=== PATIENT | female | born 1940 | race Caucasian/White ===

== ENCOUNTER 2017-10-18 16:42 | Observation (INO) ==
[2017-10-18] MEDS ORDERED: IPRATROPIUM/ALBUTEROL 3 ML AMPUL.NEB NEB ONE ×2 (16:51→16:53)
[2017-10-18] MEDS ORDERED: 0.9 % SODIUM CHLORIDE 1,000 ML IV ONE (17:10)
[2017-10-18] MEDS ORDERED: methylPREDNISolone SOD SUCC 125 MG/2 ML VIAL IV ONE (17:10)
[2017-10-18] MEDS ORDERED: ALBUTEROL SULFATE 2.5 MG/3 ML NEBULIZER NEB ONE (17:10)
[2017-10-18] MEDS ORDERED: AZITHROMYCIN 500 MG in DEXTROSE 5% IN WATER 250 ML IV ONE (17:31)
--- NOTE | 2017-10-18 17:49 | Emergency Department Note ---
SOB HPI - General Chief Complaint: Shortness of Breath/Dyspnea Stated Complaint: SOB Time Seen by Provider: 10/18/17 17:02 Source: patient Mode of arrival: ambulatory Limitations: no limitations - History of Present Illness 76-year-old female who is been wheezing since this morning. She has a history of asthma/COPD. She does take nebulized treatments at home. She notes she has a fever at home. Not on home oxygen - Related Data Home Medications Medication Instructions Recorded Confirmed ALPRAZolam [Alprazolam] 1 tab PO PRN PRN 06/07/15 10/18/17 Albuterol Sulfate [Proair Hfa] 1 puff INH PRN PRN 06/07/15 10/18/17 HYDROcodone/ACETAMINOPHEN 1 - 2 tab PO Q4HP PRN 06/07/15 10/18/17 [Hydrocodon-Acetaminophn 10-325] Losartan Potassium [Losartan 50 mg PO DAILY 06/07/15 10/18/17 Potassium] Tiotropium [place] [Spiriva] 1 puff INH DAILY 06/07/15 06/07/15 amLODIPine BESYLATE [Amlodipine 1 tab PO DAILY 06/07/15 10/18/17 Besylate] Escitalopram Oxalate 20 mg PO PRN PRN 10/18/17 10/18/17 Previous Rx's Medication Instructions Recorded Methocarbamol [Robaxin] 750 - 1,500 mg PO QIDP PRN #40 05/18/15 tablet Albuterol Sulfate 0.63 mg IH Q4-6HP PRN #20 vial.neb 10/03/15 Allergies Allergy/AdvReac Type Severity Reaction Status Date / Time penicillin V Allergy Severe Throat Verified 09/12/17 15:01 Swells morphine Allergy Intermediate GI Verified 09/12/17 15:01 Upset/HIVES gabapentin [GABAPENTIN] Allergy Mild RASH/ITCHIN Verified 09/12/17 15:01 G ciprofloxacin [From CIPRO] Allergy Unknown . Verified 09/12/17 15:01 Sulfa (Sulfonamide AdvReac Unknown Vomiting Verified 09/12/17 15:01 Antibiotics) [SULFA(SULFONAMIDE ANTIBIOTICS)] Review of Systems All systems ED: reviewed and negative except as stated. Past Medical History - Past Medical History Attestation: Yes: The following information was validated with the patient. Medical history: Reports: asthma, COPD, hypertension, other (bilateral pedal neuropathy) Psychiatric history: Reports: no psych history Surgical history ED: Reports: other (Cyst on her back) - Social History smoking status: Former smoker Alcohol use: Reports: Rarely Drug use: Reports: none Physical Exam Some acute respiratory distress is noted- despite getting DuoNeb treatment on admission to the ER she is still working pretty hard to breathe with coarse rhonchi and wheezes throughout all lung gaytan. Normocephalic atraumatic. Conjunctive are clear sclerae nonicteric. No nasal discharge or congestion. Oropharynx is pink and moist. Neck is supple without lymphadenopathy thyromegaly or carotid bruit. Heart is regular rhythm but tachycardic. Unable to hear murmur secondary to loud lung sounds. Abdomen soft nontender nondistended. Normoactive bowel sounds. No pedal edema. +2 radial pulse. Alert oriented able to answer questions appropriately. Limitations: no limitations Course Vital Signs Temperature 98.9 F 10/18/17 16:43 Pulse Rate 111 H 10/18/17 16:43 Respiratory Rate 22 10/18/17 16:43 Blood Pressure 151/69 10/18/17 16:43 Pulse Oximetry (%) 90 10/18/17 16:43 Temperature 98.2 F 10/19/17 07:20 Pulse Rate 83 10/19/17 07:23 Respiratory Rate 16 10/19/17 07:23 Blood Pressure 107/61 10/19/17 07:20 Pulse Oximetry (%) 98 10/19/17 08:00 Shortness of Breath/Dyspnea - Lab Data Lab results reviewed: Yes I reviewed the patient's lab results. Result diagrams: 10/18/17 17:41 10/18/17 17:41 Lab Results 10/18/17 10/18/17 10/18/17 Range/Units 17:41 17:41 17:41 WBC 11.5 H (4.5-11.0) K/mcL RBC 4.56 (4.00-5.20) M/mcL Hgb 12.1 (12.0-15.0) g/dL Hct 36.7 (36.0-48.0) % POC Hct 36.0 (36.0-48.0) % MCV 80.6 (80.0-100.0) fL MCH 26.5 (26.0-34.0) pg MCHC 32.9 (31.0-36.0) g/dL RDW 14.4 (11.5-14.5) % Plt Count 285 (140-440) K/mcL MPV 8.4 (7.4-10.4) fL Gran % 78.9 H (38.0-78.0) % Lymph % (Auto) 9.9 L (15.5-49.0) % Wheeler % (Auto) 8.9 (1.0-12.0) % Eos % (Auto) 2.1 (0.0-7.0) % Baso % (Auto) 0.2 (0.0-2.0) % Gran # 9.1 H (1.8-8.0) K/mcL Lymph # (Auto) 1.1 L (1.5-4.8) K/mcL Wheeler # (Auto) 1.0 H (0.1-0.9) K/mcL Eos # (Auto) 0.2 (0.0-0.7) K/mcL Baso # (Auto) 0 (0.0-0.3) K/mcL VBG Lactic Acid 0.6 (0.5-2.2) mmol/L POC Sodium 138 (133-145) mmol/L Sodium 137 (133-145) mmol/L POC Potassium 4.0 (3.3-5.1) mmol/L Potassium 4.2 (3.3-5.1) mmol/L POC Chloride 102 (96-108) mmol/L Chloride 98 (96-108) mmol/L Carbon Dioxide 24 (22-30) mmol/L POC Total CO2 25 (22-30) mmol/L Anion Gap 15.0 (8-16) POC BUN 30 H (8-23) mg/dl BUN 28 H (8-23) mg/dl Creatinine 1.3 H (0.6-1.1) mg/dl POC Creatinine 1.3 H (0.6-1.1) mg/dl GFR Calculation 40 Glucose 117 H (70-105) mg/dL POC Glucose 121 H (70-105) mg/dL Calcium 9.1 (8.6-10.4) mg/dl POC WB Ioniz Calcium 1.15 L (1.16-1.32) mmol/L Total Bilirubin 0.7 (0.0-1.0) mg/dL AST 20 (0-37) U/l ALT 11 (0-40) U/l Alkaline Phosphatase 71 (39-117) U/L Total Protein 7.0 (5.9-8.4) gm/dL Albumin 4.1 (3.2-5.2) gm/dL Globulin 2.9 (2.2-3.7) gm/dL Albumin/Globulin Ratio 1.4 (1.0-2.3) ABG shows pH of 7.52 PCO2 35 PO2 56-respiratory alkalosis from tachypnea with hypoxia - Radiology Data Radiology results reviewed: Yes I reviewed the patient's radiology results. Chest x-ray shows no acute infiltrate but flattening of the diaphragms and expanded lungs consistent with COPD/asthma exacerbation. Disposition Pt seen by CASINO MANAGER/PA only: No Clinical Impression: Acute exacerbation of chronic obstructive airways disease, Hypoxia Summary: Patient has acute exacerbation of COPD/asthma with hypoxia. Start Solu-Medrol. Requiring oxygen now Discussed case with Dr. Hernandez, hospitalist who agreed to accept the patient for further care Disposition: Xfer As Inpt ([facility]) Condition: Serious
[2017-10-18 18:19] LABS: Basophils # (Auto) 0 K/mcL (0.0-0.3); Basophils % (Auto) 0.2 % (0.0-2.0); Eosinophils # (Auto) 0.2 K/mcL (0.0-0.7); Eosinophils % (Auto) 2.1 % (0.0-7.0); Granulocytes % (Auto) 78.9 % (38.0-78.0); Lymphocytes # (Auto) 1.1 K/mcL (1.5-4.8); Lymphocytes % (Auto) 9.9 % (15.5-49.0); Mean Cell Volume 80.6 fL (80.0-100.0); Mean Corpuscular HGB Conc 32.9 g/dL (31.0-36.0); Mean Corpuscular Hemoglobin 26.5 pg (26.0-34.0); Monocytes % (Auto) 8.9 % (1.0-12.0); Platelet Count 285 K/mcL (140-440); RBC 4.56 M/mcL (4.00-5.20); Red Cell Distribution Width 14.4 % (11.5-14.5)
[2017-10-18 18:39] LABS: ALT/SGPT 11 U/l (0-40); Albumin 4.1 gm/dL (3.2-5.2); Albumin/Globulin Ratio 1.4 (1.0-2.3); Alkaline Phosphatase 71 U/L (39-117); Blood Urea Nitrogen 28 mg/dl (8-23)
[2017-10-18] MEDS ORDERED: AZITHROMYCIN 250 MG TABLET PO ONE (18:59)
[2017-10-18] MEDS ORDERED: SUMAtriptan SUCCINATE 6 MG/0.5 ML VIAL SQ ONE (20:01)
[2017-10-18] MEDS ORDERED: ONDANSETRON 4 MG/2 ML VIAL IV PRN (20:01)
[2017-10-18] MEDS ORDERED: ACETAMINOPHEN 325 MG TABLET PO PRN (20:01)
--- NOTE | 2017-10-18 20:14 | Internal Med History&Physical ---
Medical - H&P: HPI Patient information: Note initiated : 10/18/17 at 8:07 pm Service Date, if different from initiated Date: [] Patient: Lisa Ross a 76 y/o F admitted on 10/18/17 for Shortness of breath. Chief Complaint: [] History of present illness: Ms. Ross is a 76 year old Female with h/o asthma/copd presents to the ER with complaints of 2 day history of shortness of breath and cough She notes she was her usual self 2 days ago, when her symptoms started. She has been having worsening shortness of breath with activity and rest, she notes she also has been wheezing and cough, she has chest pain associated with the cough. She admits to being nauseas but no vomiting she admits to having a headache, has h/o migraine headache and feels one is coming on She does not use oxygen at home In the ER she was noted to be afebrile, vitals stable, but mildly hypoxic intermittently. She was > 902% on 2 L by on my exam was doing 90-94% on room air ABG done in the ER showed hypoxia with po2 of 56% cxr clear ekg nsr lab reviewed, the patient was wheezing in the ER, received steroids, dunoebs and zithromax with some relief, but stil not stable enough to go home. She was therefore admitted to the hospital for further management. Review of systems: CONSTITUTIONAL: No weight loss, fever, chills, weakness or fatigue. HEENT: Eyes: No visual loss, blurred vision, double vision or yellow sclerae. Ears, Nose, Throat: No hearing loss, sneezing, congestion, runny nose or sore throat. SKIN: No rash or itching. CARDIOVASCULAR: chest pain with cough present, no palpitations or syncope RESPIRATORY: sob with rest and activity, cough present, clear sputum GASTROINTESTINAL: present nausea, No vomiting or diarrhea or constipation. No abdominal pain or blood in stools No [place]. GENITOURINARY: Denies Burning on urination. Blood in urine, or foul smelling urine NEUROLOGICAL: present headache and diziness no syncope, paralysis, tremors, numbness or tingling in the extremities. No change in bowel or bladder control. MUSCULOSKELETAL: pain everywhere as per her, its chr HEMATOLOGIC: No bleeding or bruising. No enlarged nodes PSYCHIATRIC: stable anxiety and depression. ENDOCRINOLOGIC: No reports of sweating, cold or heat intolerance. No polyuria or polydipsia. ALLERGIES: No hives, eczema or rhinitis. Skin: No rash, no jaundice, cyanosis or pallor. 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 denies etoh Medical - H&P: Meds Home Medications Medication Instructions Recorded Confirmed Type Methocarbamol [Robaxin] 750 - 1,500 mg PO QIDP PRN #40 05/18/15 09/12/17 Rx tablet ALPRAZolam [Alprazolam] 1 tab PO PRN PRN 06/07/15 09/12/17 History Albuterol Sulfate [Proair Hfa] 1 puff INH PRN PRN 06/07/15 09/12/17 History HYDROcodone/ACETAMINOPHEN 1 - 2 tab PO Q4HP PRN 06/07/15 09/12/17 History [Hydrocodon-Acetaminophn 10-325] Losartan Potassium [Losartan 50 mg PO DAILY 06/07/15 09/12/17 History Potassium] Tiotropium [place] [Spiriva] 1 puff INH DAILY 06/07/15 06/07/15 History amLODIPine BESYLATE [Amlodipine 1 tab PO DAILY 06/07/15 09/12/17 History Besylate] Albuterol Sulfate 0.63 mg IH Q4-6HP PRN #20 vial.neb 10/03/15 09/12/17 Rx predniSONE [Pred[facility]one] [facility] [place] 10/24/16 Rx guaiFENesin [Mucinex] 600 mg PO BID #30 tab 09/15/17 Rx predniSONE [Deltasone] 20 mg PO DAILY #10 tab 09/15/17 Rx Allergies Allergy/AdvReac Type Severity Reaction Status Date / Time penicillin V Allergy Severe Throat Verified 09/12/17 15:01 Swells morphine Allergy Intermediate GI Verified 09/12/17 15:01 Upset/HIVES gabapentin [GABAPENTIN] Allergy Mild RASH/ITCHIN Verified 09/12/17 15:01 G ciprofloxacin [From CIPRO] Allergy Unknown . Verified 09/12/17 15:01 Sulfa (Sulfonamide AdvReac Unknown Vomiting Verified 09/12/17 15:01 Antibiotics) [SULFA(SULFONAMIDE ANTIBIOTICS)] Medical - H&P: Exam - Constitutional Vitals: Temp Pulse Resp BP Pulse Ox 98.9 F 104 H 21 149/64 90 10/18/17 19:49 10/18/17 19:49 10/18/17 19:49 10/18/17 19:49 10/18/17 19:49 Exam: Constitutional; Afebrile, cooperative, alert, not in distress. Eyes- No icterus, , No periorbital swelling Ears- Ext ear normal, hearing normal to conversation. Neck- Midline trachea, supple Respiratory system: air entry equal on both sides, olman prlonged exp phase, olman wheeze, speaking full sentences, no accessory muscle use. CVS- Rate rhythm regular, S1,S2 heard, no gallop, no rub. Abdomen- Soft nontender abdomen, no organomegaly, no tenderness, no guarding or rigidity, NURSING TECHN- AOOx3, moving all extremities, no gross focal deficit noted. Medical - H&P: Reslt - Labs CBC & Chem 7: 10/18/17 17:41 10/18/17 17:41 Labs: Short CBC 10/18/17 Range/Units 17:41 WBC 11.5 H (4.5-11.0) K/mcL Hgb 12.1 (12.0-15.0) g/dL Hct 36.7 (36.0-48.0) % Plt Count 285 (140-440) K/mcL BMP 10/18/17 17:41 Sodium 137 Potassium 4.2 Chloride 98 Carbon Dioxide 24 BUN 28 H Creatinine 1.3 H Glucose 117 H Calcium 9.1 Liver Function 10/18/17 Range/Units 17:41 Total Bilirubin 0.7 (0.0-1.0) mg/dL AST 20 (0-37) U/l ALT 11 (0-40) U/l Alkaline Phosphatase 71 (39-117) U/L Albumin 4.1 (3.2-5.2) gm/dL Medical - H&P: A/P - Narrative A/P Narrative: A/P Acute copd/ asthma exacerbation hypoxia HTN Migraine headache Anxiety/ Depression Plan Admit to med surg as obs IV solumedrol given in ER Start on po prednisone daily duonebs q4hrs zithromax resume home meds when verified sumatriptan sq for migraine DVT hep sq Diet regular Full code
[2017-10-18] MEDS: 0.9 % SODIUM CHLORIDE 10 ML SYRINGE IV SCH (21:39)
[2017-10-18] MEDS: HEPARIN 5,000 UNIT/ML VIAL SQ SCH (21:39)
[2017-10-18] MEDS: FAMOTIDINE 20 MG TABLET PO SCH (21:39)
[2017-10-18] MEDS: HYDROcodone/APAP 5/325MG TABLET PO PRN (22:53)
[2017-10-18] MEDS: IPRATROPIUM/ALBUTEROL 3 ML AMPUL.NEB NEB SCH (22:53)
[2017-10-19] MEDS: IPRATROPIUM/ALBUTEROL 3 ML AMPUL.NEB NEB SCH ×6 (02:21→22:56)
[2017-10-19] MEDS: HYDROcodone/APAP 5/325MG TABLET PO PRN ×4 (02:59→18:41)
[2017-10-19] MEDS: 0.9 % SODIUM CHLORIDE 10 ML SYRINGE IV SCH ×3 (05:26→20:41)
[2017-10-19] MEDS: HEPARIN 5,000 UNIT/ML VIAL SQ SCH ×2 (08:17→20:41)
[2017-10-19] MEDS: AZITHROMYCIN 250 MG TABLET PO SCH (08:17)
[2017-10-19] MEDS: predniSONE 20 MG TABLET PO SCH (08:17)
[2017-10-19] MEDS: FAMOTIDINE 20 MG TABLET PO SCH ×2 (08:17→20:41)
--- NOTE | 2017-10-19 09:16 | XRay Report ---
HISTORY: Reason for Exam:dyspnea FINDINGS: The lungs are clear. The heart, mediastinum, penny and pleura are normal. The questionable nodule described on the prior chest x-ray from 09/15/17 is not identified on the current exam. IMPRESSION: Normal chest. Interpreted and Authenticated by: Kana Fernandes 10/19/17
--- NOTE | 2017-10-19 09:44 | Internal Med Progress Note ---
Medical - PN: Subj Patient information: Note initiated : 10/19/17 at 9:41 am Service Date, if different from initiated Date: [] Patient: Lisa Ross a 76 y/o F admitted on 10/18/17 for Shortness of breath. Chief Complaint: [] Interval history: Ms. Ross is a 76 year old Female with h/o asthma/copd presents to the ER with complaints of 2 day history of shortness of breath and cough She notes she was her usual self 2 days ago, when her symptoms started. She has been having worsening shortness of breath with activity and rest, she notes she also has been wheezing and cough, she has chest pain associated with the cough. She admits to being nauseas but no vomiting she admits to having a headache, has h/o migraine headache and feels one is coming on She does not use oxygen at home In the ER she was noted to be afebrile, vitals stable, but mildly hypoxic intermittently. She was > 902% on 2 L by on my exam was doing 90-94% on room air ABG done in the ER showed hypoxia with po2 of 56% cxr clear ekg nsr lab reviewed, the patient was wheezing in the ER, received steroids, dunoebs and zithromax with some relief, but stil not stable enough to go home. She was therefore admitted to the hospital for further management. 5/6 Patient seen and examined lying comfortably in bed feels better compared to yesterday but still has some cough and shortness of breath. Example shows wheezing. We were unable to get an IV access, given the patient does not have any intravenous medications for now will avoid trying to get another line. Continue steroids and duo nebs. Continue azithromycin. I expect discharge tomorrow Pertinent ROS: Denies headache, dizziness Denies chest pain, palpitations Cough and shortness of breath improving Denies abdominal pain, nausea or vomiting. - Constitutional Vitals: Vital Signs Temp Pulse Resp BP Pulse Ox 98.2 F 83 16 107/61 98 10/19/17 07:20 10/19/17 07:23 10/19/17 07:23 10/19/17 07:20 10/19/17 08:00 Period Temp Pulse Resp BP Sys/Donald Pulse Ox Last 24 Hr 97.6 F-98.9 F 83-111 16-30 107-151/56-78 90-98 Intake and Output 10/18/17 10/19/17 10/19/17 21:59 05:59 13:59 Intake Total 660 / 660 1120 / 1120 500 / 500 Output Total 50 / 50 Balance 660 / 660 1070 / 1070 500 / 500 Weight 134 lb Intake & Output: Intake & Output 10/18/17 10/19/17 10/19/17 21:59 05:59 13:59 Intake Total 660 / 660 1120 / 1120 500 / 500 Output Total 50 / 50 Balance 660 / 660 1070 / 1070 500 / 500 Weight 134 lb Intake: IV 300 / 300 Sodium Chloride 0.9% 1,000 ml @ 250 / 250 Wide Open IV .Q0M ONE Rx#: [id number] Zithromax 500 mg In Dextrose 5% 50 / 50 in Water 250 ml @ 250 mls/hr IV ONCE ONE Rx#:[id number] Oral 360 / 360 1120 / 1120 500 / 500 Output: Void Amount 50 / 50 Other: Meal 2x tacos toast Breakfast Percent of Meal Consumed 100% 100% 100% Feeding Ability Independent Independent Exam: Constitutional; Afebrile, cooperative, alert, not in distress. Eyes- No icterus, , No periorbital swelling Ears- Ext ear normal, hearing normal to conversation. Neck- Midline trachea, supple Respiratory system: Air entry improved since yesterday, still has bilateral wheeze and prolonged expiratory phase, but wheezing has improved. The patient is able to speak full sentences no accessory muscle use CVS- Rate rhythm regular, S1,S2 heard, no gallop, no rub. Abdomen- Soft nontender abdomen, no organomegaly, no tenderness, no guarding or rigidity, ROOM SERVICE BELLHOP- AOOx3, moving all extremities, no gross focal deficit noted. Medical - PN: Obj Da - Labs CBC & Chem 7: 10/18/17 17:41 10/18/17 17:41 Labs: Abnormal Lab Results 10/18/17 10/18/17 17:41 17:41 WBC 11.5 H Gran % 78.9 H Lymph % (Auto) 9.9 L Gran # 9.1 H Lymph # (Auto) 1.1 L [place] # (Auto) 1.0 H POC BUN 30 H BUN 28 H Creatinine 1.3 H POC Creatinine 1.3 H Glucose 117 H POC Glucose 121 H POC WB Ioniz Calcium 1.15 L Meds: Medications Acetaminophen (Tylenol) 650 mg PO Q6HP PRN PRN Reason: PAIN/FEVER > 101 Hydrocodone Bitart/Acetaminophen ([place] 5/325mg) 1 tab PO Q4HP PRN PRN Reason: PAIN LEVEL 3-6 Last Admin: 10/19/17 07:09 Dose: 1 tab Albuterol/Ipratropium (Duoneb) 3 ml NEB Q4HRT [facility] Last Admin: 10/19/17 07:22 Dose: 3 ml Azithromycin (Zithromax) 250 mg PO DAILY [facility] Stop: 10/22/17 09:01 Last Admin: 10/19/17 08:17 Dose: 250 mg Famotidine (Pepcid) 20 mg PO BID [facility] Last Admin: 10/19/17 08:17 Dose: 20 mg Heparin Sodium (Porcine) (Heparin) 5,000 unit SQ Q12 [facility] Last Admin: 10/19/17 08:17 Dose: 5,000 unit Ondansetron HCl (Zofran) 4 mg IV Q6HP PRN PRN Reason: Nausea And Vomiting Prednisone (Prednisone) 40 mg PO QAMCC [facility] Last Admin: 10/19/17 08:17 Dose: 40 mg Sodium Chloride (Saline Flush) 10 ml IV Q8 [facility] Last Admin: 10/19/17 05:26 Dose: Not Given Medical - PN: A/P - Time Spent With Patient Total time spent is greater than 50% in coordination of care (as documented) at patient's floor/unit and/or counseling patient: - Narrative A/P Narrative: A/P Acute copd/ asthma exacerbation hypoxia HTN Migraine headache Anxiety/ Depression Plan Continue present management, continue duo nebs, oral steroids, oral azithromycin. Patient did not complain of headache this morning. Continue home medications Patient does not require oxygen at this point in time. DVT hep sq Diet regular Full code Medical - PN: Qual - Stroke Symptom Onset Unknown: No - VTE Deep Vein Thrombosis/Pulmonary Embolism Present on Admission: No
[2017-10-20] MEDS: IPRATROPIUM/ALBUTEROL 3 ML AMPUL.NEB NEB SCH ×2 (03:22→07:16)
[2017-10-20] MEDS: HYDROcodone/APAP 5/325MG TABLET PO PRN (04:39)
[2017-10-20] MEDS: 0.9 % SODIUM CHLORIDE 10 ML SYRINGE IV SCH (05:53)
[2017-10-20] MEDS: predniSONE 20 MG TABLET PO SCH (07:34)
[2017-10-20] MEDS: AZITHROMYCIN 250 MG TABLET PO SCH (07:35)
[2017-10-20] MEDS: HEPARIN 5,000 UNIT/ML VIAL SQ SCH (07:35)
[2017-10-20] MEDS: FAMOTIDINE 20 MG TABLET PO SCH (07:35)
[2017-10-20 08:28] LABS: Blood Urea Nitrogen 46 mg/dl (8-23)
--- NOTE | 2017-10-20 08:28 | Discharge Summary ---
Medical - DS: Prov Patient information: Note initiated : 10/20/17 at 8:26 am Service Date, if different from initiated Date: [] Patient: Lisa Ross 76 y/o F admitted on 10/18/17 for Shortness of breath. Chief Complaint: [] Date of admission: 10/18/17 19:40 Discharge date: 10/20/17 Primary care physician: Saige Yap Admitting clinician: Raeann Hernandez Discharging clinician: Raeann Hernandez Medical - DS: Meds - Discharge Medications Prescriptions: Azithromycin [Zithromax] 250 mg PO DAILY #3 tab predniSONE [Prednisone] 40 mg PO QAMCC #6 tab Active and Home Medications: Home Medications Methocarbamol [Robaxin] 750 - 1,500 mg PO QIDP PRN #40 tablet 05/18/15 [Rx Confirmed 09/12/17 Last Taken Unknown] ALPRAZolam [Alprazolam] 1 tab PO PRN PRN 06/07/15 [History Confirmed 10/18/17 Last Taken 10/16/17 11:00] Albuterol Sulfate [Proair Hfa] 1 puff INH PRN PRN 06/07/15 [History Confirmed Last Taken 10/18/17 11:00] HYDROcodone/ACETAMINOPHEN [Hydrocodon-Acetaminophn 10-325] 1 - 2 tab PO Q4HP PRN 06/07/15 [History Confirmed 10/18/17 Last Taken 10/18/17 13:00] Losartan Potassium [Losartan Potassium] 50 mg PO DAILY 06/07/15 [History Confirmed 10/18/17 Last Taken 10/18/17 11:00] Tiotropium [place] [Spiriva] 1 puff INH DAILY 06/07/15 [History Confirmed Last Taken 10/18/17 11:00] amLODIPine BESYLATE [Amlodipine Besylate] 1 tab PO DAILY 06/07/15 [History Confirmed 10/18/17 Last Taken 10/18/17 09:00] Albuterol Sulfate 0.63 mg IH Q4-6HP PRN #20 vial.neb 10/03/15 [Rx Confirmed 10/31 Last Taken 10/18/17 11:00] Escitalopram Oxalate 20 mg PO PRN PRN 10/18/17 [History Confirmed 10/18/17 Last Taken 10/18/17 11:00] Medical - DS: Hosp Hospital course: Ms. Ross is a 76 year old Female with h/o asthma/copd presents to the ER with complaints of 2 day history of shortness of breath and cough, and wheezing. Not responding to her usual inhaler treatments. she used 4-6 times a day for 2 days before coming to the ER In the ER she was noted to be afebrile, vitals stable, but mildly hypoxic intermittently. She was > 902% on 2 L by on my exam was doing 90-94% on room air ABG done in the ER showed hypoxia with po2 of 56%, cxr clear, ekg nsr, lab reviewed, The patient was wheezing in the ER, received steroids, dunoebs and zithromax with some relief, but stil not stable enough to go home. She was therefore admitted to the hospital for further management. The patient was treated with oral prednisone, duo nebs and Zithromax. She responded to the treatment very well. In 2 days her wheezing had completely resolved, she was able to speak full sentences he was able to ambulate without any limitations. This morning she desired to be discharged early she has an appointment at 930 in [place]. I have advised her to take prednisone and azithromycin for 3 more days. She will continue with the nebulizer treatment as before. No changes in her chronic home medications have been done. Discharge diagnosis: COPD/ Asthma Exacerbation - Time Spent with Patient Total time spent providing and/or coordinating discharge services: Less than 30 minutes Medical - DS: Exam - Constitutional Vitals: Vital Signs Temp Pulse Pulse Resp BP BP Pulse Ox 10/20/17 07:42 22 10/20/17 07:32 93 H 17 10/20/17 06:22 97.6 F 18 131/69 90 10/20/17 03:20 98.3 F 76 16 132/71 91 10/19/17 23:34 98.0 F 85 22 132/67 92 10/19/17 22:56 87 18 10/19/17 20:00 97.8 F 93 H 24 H 139/69 92 10/19/17 19:33 88 20 10/19/17 16:00 94 10/19/17 15:52 97.1 F 20 125/72 93 10/19/17 15:28 92 H 16 10/19/17 12:00 98.3 F 16 128/67 98 Intake and Output 10/19/17 10/20/17 10/20/17 21:59 05:59 13:59 Intake Total 0 / 0 Output Total 350 / 350 300 / 300 200 / 200 Balance -350 / -350 -300 / -300 -200 / -200 Intake: Oral 0 / 0 Output: Void Amount 350 / 350 300 / 300 200 / 200 Other: Meal Nourishment/Supplement Percent of Meal Consumed 25% # Voids 2 2 Weight 156 lb 14.4 oz Additional comments: Constitutional; Afebrile, cooperative, alert, not in distress. Eyes- No icterus, , No periorbital swelling Ears- Ext ear normal, hearing normal to conversation. Neck- Midline trachea, supple Respiratory system: Air Entry equal on both sides, No crackles or wheezing, no rhonchi. CVS- Rate rhythm regular, S1,S2 heard, no gallop, no rub. Abdomen- Soft nontender abdomen, no organomegaly, no tenderness, no guarding or rigidity, [employer]- AOOx3, moving all extremities, no gross focal deficit noted. Medical - DS: Data Labs on day of discharge: Labs from last 24 hours 10/20/17 03:50 Sodium Pending Potassium Pending Chloride Pending Carbon Dioxide Pending Anion Gap Pending BUN Pending Creatinine Pending GFR Calculation Pending Glucose Pending Calcium Pending Medical - DS: A/P - Patient/Caregiver Discharge Instructions Activity: increase activity as tolerated Diet: Regular Diet Additional Instructions: Take antibiotic azithromycin for 3 days Take prendisone 2 tabs (40mg total) for another 3 days, take this medication with food, and or milk go to the ER if worsening symptoms, shortness of breath, chest pain or fever Prescriptions: Azithromycin [Zithromax] 250 mg PO DAILY #3 tab predniSONE [Prednisone] 40 mg PO [facility] #6 tab - Follow up Plan Follow up with: Saige Yap ARNP [Primary Care Provider] - Disposition: Home, Self-Care Prognosis: Fair Rehab Potential: Fair I certify that the patient requires SNF services: No Overall status at discharge: patient is back to baseline Medical - DS: Qual - VTE Deep Vein Thrombosis/Pulmonary Embolism Present on Admission: No
== END 2017-10-20 09:05 | disposition home or self-care (01) ==
LOC: ED 16:42 → MEDSUR 16:42
PROVIDERS: ADMIT Internal Medicine; ATTEND Internal Medicine

== ENCOUNTER 2019-06-17 17:29 | Inpatient (IN) ==
[2019-06-17] MEDS ORDERED: IPRATROPIUM/ALBUTEROL 3 ML AMPUL.NEB NEB ONE ×3 (17:34→19:17)
[2019-06-17 18:33] LABS: Basophils # (Auto) 0.11 K/mcL (0.00-0.30); Eosinophils # (Auto) 0.24 K/mcL (0.00-0.70); Eosinophils % (Auto) 2.2 % (0.0-7.0); Granulocytes % (Auto) 72.1 % (38.0-78.0); Hemoglobin 10.5 g/dL (11.2-15.7); Lymphocytes # (Auto) 1.84 K/mcL (1.50-4.80); Lymphocytes % (Auto) 16.7 % (15.5-49.0); Mean Cell Volume 86.3 fL (80.0-100.0); Mean Corpuscular HGB Conc 30.9 g/dL (31.0-36.0); Mean Platelet Volume 9.5 fL (7.4-10.4); Monocytes # (Auto) 0.88 K/mcL (0.10-0.90); Platelet Count 388 K/mcL (140-440); RBC 3.94 M/mcL (3.59-5.38); Red Cell Distribution Width 13.8 % (11.5-14.5)
[2019-06-17 18:59] LABS: Creatine Kinase MB 3.5 ng/ml (0-2.9); proBNP 761.1 pg/ml (0-450)
[2019-06-17] MEDS ORDERED: methylPREDNISolone SOD SUCC 125 MG/2 ML VIAL IV ONE (18:59)
--- NOTE | 2019-06-17 18:59 | Emergency Department Note ---
Chest Pain HPI - General Chief Complaint: Chest Pain Stated Complaint: blood pressure problem Time Seen by Provider: 06/17/19 18:44 Source: patient Mode of arrival: wheelchair Limitations: no limitations - History of Present Illness HPI Narrative: History of cough and shortness of breath for the last week. EMS, she's very wheezy, she does have a history of reactive airways, asthma for the last several years. Quit smoking about 30 years ago. Daughter states she's been coughing and bringing up a lot of mucus and phlegm Duration: intermittent - Related Data Home Medications Medication Instructions Recorded Confirmed ALPRAZolam [Alprazolam] 1 tab PO PRN PRN 06/07/15 02/26/19 Albuterol Sulfate [Proair Hfa] 1 puff INH PRN PRN 06/07/15 02/26/19 HYDROcodone/ACETAMINOPHEN 1 - 2 tab PO Q4HP PRN 06/07/15 02/26/19 [Hydrocodon-Acetaminophn 10-325] Losartan Potassium 50 mg PO DAILY 06/07/15 02/26/19 Tiotropium [place] [Spiriva] 1 puff INH DAILY 06/07/15 02/26/19 amLODIPine BESYLATE [Amlodipine 1 tab PO DAILY 06/07/15 02/26/19 Besylate] Escitalopram Oxalate 20 mg PO PRN PRN 10/18/17 02/26/19 Previous Rx's Medication Instructions Recorded Methocarbamol [Robaxin] 750 - 1,500 mg PO QIDP PRN #40 05/18/15 tablet Albuterol Sulfate 0.63 mg IH Q4-6HP PRN #20 vial.neb 10/03/15 Ondansetron [Zofran ODT] 4 mg SL Q4-6HP PRN #10 tab 04/08/18 Allergies Allergy/AdvReac Type Severity Reaction Status Date / Time penicillin V Allergy Severe Throat Verified 06/17/19 17:33 Swells morphine Allergy Intermediate GI Verified 06/17/19 17:33 Upset/HIVES ciprofloxacin [From CIPRO] Allergy Mild Vomiting Verified 06/17/19 17:33 Sulfa (Sulfonamide AdvReac Mild Vomiting Verified 06/17/19 17:33 Antibiotics) [SULFA(SULFONAMIDE ANTIBIOTICS)] Review of Systems All systems ED: reviewed and negative except as stated. Chest Pain PMH - Past Medical History Attestation: Yes: The following information was validated with the patient. Medical history: Reports: asthma, COPD, hypertension, other (bilateral pedal neuropathy. SPENCER (but not treated 2017)). Denies: atrial fibrillation, cancer, CVA, hyperlipidemia, myocardial infarction, TIA Surgical history ED: Reports: non-contributory Psychiatric history: Reports: anxiety, depression - Social History smoking status: Former smoker Alcohol use: Reports: None (Denies any.) Drug use: Reports: none. Denies: marijuana Physical Exam Limitations: no limitations General appearance: alert Head: atraumatic, normocephalic Eye: Present: normal appearance, PERRL, EOMI ENT: Present: normal exam, normal oropharynx, mucous membranes moist, TM's normal bilaterally Neck: Present: normal inspection, full ROM Chest: Present: normal inspection, symmetric chest wall rise. Absent: tenderness Respiratory: Present: rales/crackles, wheezes, accessory muscle use, prolonged expiratory phase. Absent: respiratory distress, stridor Cardiovascular: Present: regular rate, normal rhythm, normal heart sounds Abdominal: Present: soft, normal bowel sounds. Absent: distention, tenderness, guarding Extremities: Present: normal inspection, full ROM, tenderness Back: Present: normal inspection, full ROM Neurological: Present: alert, oriented X3, CN II-XII intact Psychiatric: Present: normal affect Skin: Present: warm, dry, normal color Course Vital Signs Temperature 96.3 F L 06/17/19 17:29 Pulse Rate 73 06/17/19 17:29 Respiratory Rate 30 H 06/17/19 17:29 Blood Pressure 125/65 06/17/19 17:29 Pulse Oximetry (%) 97 06/17/19 17:29 Temperature 96.3 F L 06/17/19 17:29 Pulse Rate 82 06/17/19 20:46 Respiratory Rate 15 06/17/19 20:46 Blood Pressure 124/59 06/17/19 20:46 Pulse Oximetry (%) 91 06/17/19 20:46 Chest Pain - MDM Narrative Medical decision making narrative: Discussed hospital admission versus observation with Dr. Tinsley, at this point, he is ordered a few more tests are, we attempted to get her off the oxygen, but every time we DC'd the oxygen her O2 sat would fall to 88. %. - Lab Data Lab results reviewed: Yes I reviewed the patient's lab results. Result diagrams: 06/17/19 18:00 06/17/19 17:59 Lab Results 06/17/19 06/17/19 06/17/19 Range/Units 17:59 17:59 18:00 WBC 11.0 (4.50-11.00) K/mcL RBC 3.94 (3.59-5.38) M/mcL Hgb 10.5 L (11.2-15.7) g/dL Hct 34.0 L (34.1-44.9) % MCV 86.3 (80.0-100.0) fL MCH 26.6 (26.0-34.0) pg MCHC 30.9 L (31.0-36.0) g/dL RDW 13.8 (11.5-14.5) % Plt Count 388 (140-440) K/mcL MPV 9.5 (7.4-10.4) fL Gran % 72.1 (38.0-78.0) % Lymph % (Auto) 16.7 (15.5-49.0) % [place] % (Auto) 8.0 (1.0-12.0) % Eos % (Auto) 2.2 (0.0-7.0) % Baso % (Auto) 1.0 (0.0-2.0) % Gran # 7.96 (1.80-8.00) K/mcL Lymph # (Auto) 1.84 (1.50-4.80) K/mcL [place] # (Auto) 0.88 (0.10-0.90) K/mcL Eos # (Auto) 0.24 (0.00-0.70) K/mcL Baso # (Auto) 0.11 (0.00-0.30) K/mcL Sodium 138 (133-145) mmol/L Potassium 3.8 (3.3-5.1) mmol/L Chloride 101 (96-108) mmol/L Carbon Dioxide 19 L (22-30) mmol/L Anion Gap 18.0 H (8-16) BUN 27 H (8-23) mg/dl Creatinine 1.7 H (0.6-1.1) mg/dl GFR Calculation 29 Glucose 163 H (70-105) mg/dL Calcium 9.2 (8.6-10.4) mg/dl Total Bilirubin 0.2 (0.0-1.0) mg/dL AST 25 (0-37) U/l ALT 19 (0-40) U/l Alkaline Phosphatase 78 (39-117) U/L Total Creatine Kinase 138 (24-170) IU/L CK-MB (CK-2) 3.5 H (0-2.9) ng/ml Myoglobin 287 H (25-58) ng/ml Troponin T (0-0.03) ng/ml NT-Pro-B Natriuret Pep 761.1 H (0-450) pg/ml Total Protein 7.1 (5.9-8.4) gm/dL Albumin 4.0 (3.2-5.2) gm/dL Globulin 3.1 (2.2-3.7) gm/dL Albumin/Globulin Ratio 1.3 (1.0-2.3) 06/17/19 Range/Units 18:00 WBC (4.50-11.00) K/mcL RBC (3.59-5.38) M/mcL Hgb (11.2-15.7) g/dL Hct (34.1-44.9) % MCV (80.0-100.0) fL MCH (26.0-34.0) pg MCHC (31.0-36.0) g/dL RDW (11.5-14.5) % Plt Count (140-440) K/mcL MPV (7.4-10.4) fL Gran % (38.0-78.0) % Lymph % (Auto) (15.5-49.0) % [place] % (Auto) (1.0-12.0) % Eos % (Auto) (0.0-7.0) % Baso % (Auto) (0.0-2.0) % Gran # (1.80-8.00) K/mcL Lymph # (Auto) (1.50-4.80) K/mcL [place] # (Auto) (0.10-0.90) K/mcL Eos # (Auto) (0.00-0.70) K/mcL Baso # (Auto) (0.00-0.30) K/mcL Sodium (133-145) mmol/L Potassium (3.3-5.1) mmol/L Chloride (96-108) mmol/L Carbon Dioxide (22-30) mmol/L Anion Gap (8-16) BUN (8-23) mg/dl Creatinine (0.6-1.1) mg/dl GFR Calculation Glucose (70-105) mg/dL Calcium (8.6-10.4) mg/dl Total Bilirubin (0.0-1.0) mg/dL AST (0-37) U/l ALT (0-40) U/l Alkaline Phosphatase (39-117) U/L Total Creatine Kinase (24-170) IU/L CK-MB (CK-2) (0-2.9) ng/ml Myoglobin (25-58) ng/ml Troponin T < 0.01 (0-0.03) ng/ml NT-Pro-B Natriuret Pep (0-450) pg/ml Total Protein (5.9-8.4) gm/dL Albumin (3.2-5.2) gm/dL Globulin (2.2-3.7) gm/dL Albumin/Globulin Ratio (1.0-2.3) - Radiology Data Radiology results reviewed: Yes I reviewed the patient's radiology results. Disposition Pt seen by [facility]/PA only: No Clinical Impression: Atypical chest pain, Reactive airway disease, Asthma with acute exacerbation Disposition: Xfer As Outpt/Obs ([facility]) Referrals: Saige Yap ARNP [Primary Care Provider] -
[2019-06-17] MEDS ORDERED: MONTELUKAST 10 MG TABLET PO ONE (19:01)
[2019-06-17 19:02] LABS: ALT/SGPT 19 U/l (0-40); AST/SGOT 25 U/l (0-37); Albumin/Globulin Ratio 1.3 (1.0-2.3); Alkaline Phosphatase 78 U/L (39-117); Bilirubin,Total 0.2 mg/dL (0.0-1.0); Blood Urea Nitrogen 27 mg/dl (8-23); Calcium 9.2 mg/dl (8.6-10.4); Carbon Dioxide 19 mmol/L (22-30); Chloride 101 mmol/L (96-108); Globulin 3.1 gm/dL (2.2-3.7); Glomerular Filtration Rate 29; Glucose 163 mg/dL (70-105)
[2019-06-17] MEDS ORDERED: FAMOTIDINE 20 MG TABLET PO ONE (19:02)
[2019-06-17] MEDS ORDERED: diphenhydrAMINE 50 MG/ML VIAL IV ONE (19:02)
[2019-06-17] MEDS ORDERED: HYDROmorphone 2 MG/ML VIAL IV PRN (21:19)
--- NOTE | 2019-06-17 21:46 | Internal Med History&Physical ---
Medical - H&P: [facility] Patient information: Note initiated : 06/17/19 at 9:43 pm Service Date, if different from initiated Date: [] Patient: Lisa Ross a 78 y/o F admitted on for blood pressure problem. Chief Complaint: [] History of present illness: Ms. Ross is a 78 year old F With a history of asthma and COPD presents the ED with shortness of breath. Patient collapsed in the shower today and is able to bring on the wall to the other apartment and those individuals called EMS. Patient states she has had increased cough and shortness of breath for 4 days above chronic cough. She is felt very wheezy. She has a lot of sinus drainage. Has some chest pain aggravated by coughing. In the ED she was given steroids and nebulizers with some improvement however on room air she still desat to the 80s. And still very wheezy. Chest x-ray unremarkable. Review of Systems: Pertinent positives as above. Chronic headaches, constipation. Denies fever/chills/nausea/vomiting/abdominal pain/diarrhea. Remaining 10 point review of system reviewed negative Medical - H&P: PMH Medical history: Medical History (Last Updated 05/09/18 @ 06:00 by Horace Horn DO) Asthma attack (Acute) Asthma (Acute) Chest pain, non-cardiac (Resolved) Contusion of rib on right side (Resolved) Sprain of thoracic region (Resolved) Past surgical history: Left hip arthroplasty Cholecystectomy Family history: Mother COPD Father had lung disease from asbestosis exposure Social History Patient quit smoking 30 years ago Denies alcohol use Ambulates with a cane Lives at a [facility] apartments Medical - H&P: Meds Home Medications Medication Instructions Recorded Confirmed Type Methocarbamol [Robaxin] 750 - 1,500 mg PO QIDP PRN #40 05/18/15 02/26/19 Rx tablet ALPRAZolam [Alprazolam] 1 tab PO PRN PRN 06/07/15 02/26/19 History Albuterol Sulfate [Proair Hfa] 1 puff INH PRN PRN 06/07/15 02/26/19 History HYDROcodone/ACETAMINOPHEN 1 - 2 tab PO Q4HP PRN 06/07/15 02/26/19 History [Hydrocodon-Acetaminophn 10-325] Losartan Potassium 50 mg PO DAILY 06/07/15 02/26/19 History Tiotropium [place] [Spiriva] 1 puff INH DAILY 06/07/15 02/26/19 History amLODIPine BESYLATE [Amlodipine 1 tab PO DAILY 06/07/15 02/26/19 History Besylate] Albuterol Sulfate 0.63 mg IH Q4-6HP PRN #20 vial.neb 10/03/15 02/26/19 Rx Escitalopram Oxalate 20 mg PO PRN PRN 10/18/17 02/26/19 History Ondansetron [Zofran ODT] 4 mg SL Q4-6HP PRN #10 tab 04/08/18 02/26/19 Rx Allergies Allergy/AdvReac Type Severity Reaction Status Date / Time penicillin V Allergy Severe Throat Verified 06/17/19 17:33 Swells morphine Allergy Intermediate GI Verified 06/17/19 17:33 Upset/HIVES ciprofloxacin [From CIPRO] Allergy Mild Vomiting Verified 06/17/19 17:33 Sulfa (Sulfonamide AdvReac Mild Vomiting Verified 06/17/19 17:33 Antibiotics) [SULFA(SULFONAMIDE ANTIBIOTICS)] Medical - H&P: Exam - Constitutional Vitals: Temp Pulse Resp BP Pulse Ox 96.3 F L 89 20 126/68 95 06/17/19 17:29 06/17/19 21:31 06/17/19 21:31 06/17/19 21:31 06/17/19 21:31 Exam: General: Alert, Awake, No acute Distress Eyes/N/T: EOMI, PERRL Head/Neck: neck supple, normocephalic atraumatic CV: RRR, No murmurs, normal s1/s2 Pulm: Wheezing b/l, mild rhonchi b/l Abd: soft, nontender, +BS x4 Ext: no clubbing/cyanosis/edema Neuro: Alert, no focal deficits, moves all extremities, CN 2-12 grossly intact, symmetrical strength b/l upper/lower, sensations intact b/l upper/lower Skin: warm/dry Medical - H&P: Reslt - Labs CBC & Chem 7: 06/17/19 18:00 06/17/19 17:59 Labs: Short CBC 06/17/19 Range/Units 18:00 WBC 11.0 (4.50-11.00) K/mcL Hgb 10.5 L (11.2-15.7) g/dL Hct 34.0 L (34.1-44.9) % Plt Count 388 (140-440) K/mcL BMP 06/17/19 17:59 Sodium 138 Potassium 3.8 Chloride 101 Carbon Dioxide 19 L BUN 27 H Creatinine 1.7 H Glucose 163 H Calcium 9.2 Cardiac Enzymes 06/17/19 06/17/19 Range/Units 17:59 18:00 Total Creatine Kinase 138 (24-170) IU/L CK-MB (CK-2) 3.5 H (0-2.9) ng/ml Troponin T < 0.01 (0-0.03) ng/ml Liver Function 06/17/19 Range/Units 17:59 Total Bilirubin 0.2 (0.0-1.0) mg/dL AST 25 (0-37) U/l ALT 19 (0-40) U/l Alkaline Phosphatase 78 (39-117) U/L Albumin 4.0 (3.2-5.2) gm/dL Medical - H&P: A/P - Narrative A/P Narrative: A: *Acute chronic exacerbation of asthma/COPD (not on home O2): *Acute hypoxic respiratory failure: 2/2 above *JORDEN on CKD IIIb: *Anemia, chronic: *HTN: norvasc/losartan *Anxiety/depression: *Osteoarthritis: home prn [place] *h/o Migraines P: -Steroid(wean), nebs -IS/Acapella,RT -Respiratory viral panel -ABG -Monitor PEF -IVF's, f/u renal fxn -hold ARB for JORDEN -prn home benzo -SSI while on steroids -ppx: Lovenox full code
[2019-06-17] MEDS ORDERED: DEXTROSE 50% 50 ML VIAL IV PRN (23:21)
[2019-06-17] MEDS ORDERED: POLYETHYLENE GLYCOL 3350 17 GM PACKET PO PRN (23:21)
[2019-06-17] MEDS ORDERED: ACETAMINOPHEN 325 MG TABLET PO PRN (23:21)
[2019-06-17] MEDS ORDERED: POTASSIUM CHLORIDE 40 MEQ in DEXTROSE 5% IN WATER 500 ML IV PRN (23:21)
[2019-06-17] MEDS ORDERED: LACTULOSE 20 GM/30 ML ORAL.SOL PO PRN (23:21)
[2019-06-17] MEDS ORDERED: SENNOSIDES 1 TABLET PO PRN (23:21)
[2019-06-17] MEDS ORDERED: POTASSIUM CHLORIDE 20 MEQ TABLET PO PRN ×2 (23:21)
[2019-06-17] MEDS ORDERED: DEXTROSE 31 GM ORAL.SUSP PO PRN (23:21)
[2019-06-17] MEDS ORDERED: ONDANSETRON 4 MG/2 ML VIAL IV PRN (23:21)
[2019-06-17] MEDS ORDERED: IPRATROPIUM/ALBUTEROL 3 ML AMPUL.NEB NEB PRN (23:21)
[2019-06-17] MEDS ORDERED: MAGNESIUM SULFATE 2 GM/50 ML BAG IV PRN (23:21)
[2019-06-17] MEDS ORDERED: methylPREDNISolone SOD SUCC 125 MG/2 ML VIAL ONE (23:30)
[2019-06-17] MEDS: 0.9 % SODIUM CHLORIDE 1,000 ML IV SCH (23:44)
[2019-06-18] MEDS: 0.9 % SODIUM CHLORIDE 10 ML SYRINGE IV SCH ×4 (00:11→21:47)
[2019-06-18] MEDS: IPRATROPIUM/ALBUTEROL 3 ML AMPUL.NEB NEB SCH ×4 (00:20→18:45)
[2019-06-18] MEDS: methylPREDNISolone SOD SUCC 125 MG/2 ML VIAL IV SCH ×4 (00:49→21:46)
--- NOTE | 2019-06-18 03:52 | XRay Report ---
CLINICAL INFORMATION: Shortness of breath and chest pain COMPARISON: 02/26/2019 TECHNIQUE: PA and Lateral views FINDINGS: The heart size, mediastinum and pulmonary vessels are unremarkable. The lungs are clear. There are no effusions. The bones and soft tissues are within normal limits. IMPRESSION: Normal chest. Interpreted and Authenticated by: Ariel Isabel 06/18/19
[2019-06-18] MEDS ORDERED: ACETAMINOPHEN 325 MG TABLET PO ONE ×2 (04:43→06:43)
[2019-06-18] MEDS ORDERED: IPRATROPIUM/ALBUTEROL 3 ML AMPUL.NEB NEB ONE (06:19)
[2019-06-18] MEDS ORDERED: methylPREDNISolone SOD SUCC 125 MG/2 ML VIAL ONE (06:42)
[2019-06-18] MEDS ORDERED: LABETALOL 5 MG/ML ML IV PRN (07:07)
--- NOTE | 2019-06-18 07:08 | Internal Med Progress Note ---
Medical - PN: Subj Patient information: Note initiated : 06/18/19 at 7:04 am Service Date, if different from initiated Date: [] Patient: Lisa Ross a 78 y/o F admitted on 06/17/19 for blood pressure problem. Chief Complaint: [] Interval history: Ms. Ross is a 78 year old F With a history of asthma and COPD presents the ED with shortness of breath. Patient collapsed in the shower today and is able to bring on the wall to the other apartment and those individuals called EMS. Patient states she has had increased cough and shortness of breath for 4 days above chronic cough. She is felt very wheezy. She has a lot of sinus drainage. Has some chest pain aggravated by coughing. In the ED she was given steroids and nebulizers with some improvement however on room air she still desat to the 80s. And still very wheezy. Chest x-ray unremarkable. 06/18 He much better today. She feels her breathing is significantly improved. Per nurses she did desat a little bit while ambulating but recovered. She is cur rently on room air. She says she coughed up a bunch of junk this morning. Review of Systems: Chronic headaches, constipation. Denies fever/chills/nausea/vomiting/abdominal pain/diarrhea. Otherwise see above. - Constitutional Vitals: Vital Signs Temp Pulse Resp BP Pulse Ox 98.6 F 83 20 137/57 91 06/18/19 03:45 06/18/19 03:45 06/18/19 03:45 06/18/19 03:45 06/18/19 03:45 Period Temp Pulse Resp BP Sys/Donald Pulse Ox Last 24 Hr 96.3 F-98.6 F 73-89 13-37 86-138/49-92 91-100 Intake and Output 06/17/19 06/18/19 06/18/19 21:59 05:59 13:59 Weight 75.296 kg 74.162 kg Intake & Output: Intake & Output 06/17/19 06/18/19 06/18/19 21:59 05:59 13:59 Weight 75.296 kg 74.162 kg Other: Percent of Meal Consumed yogurt Feeding Ability Independent Exam: General: Alert, Awake, No acute Distress Eyes/N/T: EOMI, Head/Neck: neck supple, CV: RRR, No murmurs, Pulm: greatly improved today, mild wheezing, no rhonchi Abd: soft, nontender, +BS x4 Ext: no clubbing/cyanosis/edema Neuro: Alert, no focal deficits, moves all extremities, Skin: warm/dry Medical - PN: Obj Da - Labs CBC & Chem 7: 06/18/19 06:03 06/18/19 06:03 Labs: Abnormal Lab Results 06/17/19 06/17/19 06/17/19 18:00 17:59 17:59 Hgb 10.5 L Hct 34.0 L MCHC 30.9 L Carbon Dioxide 19 L Anion Gap 18.0 H BUN 27 H Creatinine 1.7 H Glucose 163 H CK-MB (CK-2) 3.5 H Myoglobin 287 H NT-Pro-B Natriuret Pep 761.1 H Meds: Medications Acetaminophen (Tylenol) 650 mg PO Q6HP PRN PRN Reason: PAIN/FEVER > 101 Last Admin: 06/18/19 06:51 Dose: 650 mg Documented by: Albuterol/Ipratropium (Duoneb) 3 ml NEB Q6HRT [facility] Last Admin: 06/18/19 00:20 Dose: 3 ml Documented by: Albuterol/Ipratropium (Duoneb) 3 ml NEB Q4HP PRN PRN Reason: Shortness Of Breath Dextrose (Dextrose 50%) 0 ml IV UD PRN PRN Reason: Hypoglycemia Diagnostic Test (Pha) (Accu-Chek) 1 each FS ACHS NITA Docusate Sodium (Colace) 100 mg PO BID NITA Enoxaparin Sodium (Lovenox) 40 mg SQ DAILY [facility] Glucose (Insta-Glucose) 15 gm PO PRN PRN PRN Reason: Hypoglycemia Potassium Chloride 40 meq/ (Dextrose) 520 mls @ 130 mls/hr IV UD PRN PRN Reason: Potassium < 3 Magnesium Sulfate (Magnesium Sulfate) 2 gm in 50 mls @ 50 mls/hr IV UD PRN PRN Reason: Magnesium </= 1.6 Sodium Chloride (Sodium Chloride 0.9%) 1,000 mls @ 125 mls/hr IV .Q8H NITA Stop: 06/18/19 15:20 Last Admin: 06/17/19 23:44 Dose: 125 mls/hr Documented by: Insulin Human Lispro (Humalog) 0 unit SQ ACHS NITA; Protocol Lactulose (Cephulac) 20 gm PO DAILYP PRN PRN Reason: Constipation Methylprednisolone Sodium Succinate (Solu-Medrol) 80 mg IV Q8 [facility] Last Admin: 06/18/19 06:50 Dose: 80 mg Documented by: Ondansetron HCl (Zofran) 4 mg IV Q4HP PRN PRN Reason: Nausea And Vomiting Polyethylene Glycol (Miralax) 17 gm PO DAILYP PRN PRN Reason: Constipation Potassium Chloride (Kdur) 40 meq PO UD PRN PRN Reason: Potssium is 3-3.5 Potassium Chloride (Kdur) 40 meq PO UD PRN PRN Reason: Potassium < 3 Senna (Senokot) 2 tab PO DAILYP PRN PRN Reason: Constipation Sodium Chloride (Saline Flush) 10 ml IV Q8 [facility] Last Admin: 06/18/19 05:16 Dose: Not Given Documented by: Medical - PN: A/P - Time Spent With Patient Total time spent is greater than 50% in coordination of care (as documented) at patient's floor/unit and/or counseling patient: - Narrative A/P Narrative: A: *Acute chronic exacerbation of asthma/COPD (not on home O2): 2/2 RSV *Acute hypoxic respiratory failure: 2/2 above -now on room air *JORDEN on CKD IIIb: improving *Anemia, chronic: *HTN: norvasc/losartan *Anxiety/depression: *Osteoarthritis: home prn [place] *h/o Migraines P: -Steroid(wean), nebs -IS/Acapella,RT -Monitor PEF -IVF's, f/u renal fxn -hold ARB for JORDEN -meds to be reconciled -prn home benzo -SSI while on steroids -ppx: Lovenox full code
[2019-06-18 07:33] LABS: Basophils # (Auto) 0.02 K/mcL (0.00-0.30); Basophils % (Auto) 0.3 % (0.0-2.0); Eosinophils # (Auto) 0 K/mcL (0.00-0.70); Eosinophils % (Auto) 0 % (0.0-7.0); Granulocytes % (Auto) 89.7 % (38.0-78.0); Hematocrit 30.1 % (34.1-44.9); Hemoglobin 9.4 g/dL (11.2-15.7); Lymphocytes # (Auto) 0.73 K/mcL (1.50-4.80); Lymphocytes % (Auto) 9.2 % (15.5-49.0); Mean Cell Volume 85.8 fL (80.0-100.0); Mean Corpuscular HGB Conc 31.2 g/dL (31.0-36.0); Mean Platelet Volume 9.6 fL (7.4-10.4); Monocytes # (Auto) 0.06 K/mcL (0.10-0.90); Monocytes % (Auto) 0.8 % (1.0-12.0); Platelet Count 338 K/mcL (140-440); RBC 3.51 M/mcL (3.59-5.38); Red Cell Distribution Width 14.1 % (11.5-14.5); WBC 7.9 K/mcL (4.50-11.00)
[2019-06-18] MEDS: 0.9 % SODIUM CHLORIDE 1,000 ML IV SCH (07:58)
[2019-06-18] MEDS: INSULIN LISPRO 1 UNIT/0.01 ML UNIT SQ SCH ×4 (07:59→21:59)
[2019-06-18 08:00] LABS: ALT/SGPT 16 U/l (0-40); AST/SGOT 24 U/l (0-37); Albumin 3.7 gm/dL (3.2-5.2); Albumin/Globulin Ratio 1.2 (1.0-2.3); Alkaline Phosphatase 70 U/L (39-117); Bilirubin,Direct < 0.2 mg/dL (0.0-0.3); Bilirubin,Total < 0.2 mg/dL (0.0-1.0); Blood Urea Nitrogen 29 mg/dl (8-23); Calcium 8.8 mg/dl (8.6-10.4); Carbon Dioxide 17 mmol/L (22-30); Chloride 99 mmol/L (96-108); Globulin 3.1 gm/dL (2.2-3.7); Glomerular Filtration Rate 33; Glucose 210 mg/dL (70-105); Lactate Dehydrogenase 212 U/L (94-250); Phosphorous 3.1 mg/dL (2.7-4.5); Triglycerides 89 mg/dl (<150); Uric Acid 8.1 mg/dL (2.5-8.0)
[2019-06-18] MEDS: DOCUSATE SODIUM 100 MG CAPSULE PO SCH ×2 (08:28→21:47)
[2019-06-18] MEDS: ENOXAPARIN 40 MG/0.4 ML SYRINGE SQ SCH (08:28)
[2019-06-18] MEDS: HYDROcodone/APAP 10/325MG TABLET PO PRN ×3 (12:30→21:47)
[2019-06-18] MEDS: SUMAtriptan SUCCINATE 50 MG TABLET PO PRN ×2 (13:06→21:48)
[2019-06-18] MEDS ORDERED: cloNIDine HCL 0.1 MG TABLET PO PRN (17:11)
[2019-06-18] MEDS ORDERED: hydrALAZINE 20 MG/ML VIAL IV PRN (17:12)
--- NOTE | 2019-06-18 17:24 | Discharge Summary ---
Medical - DS: Prov Patient information: Note initiated : 06/18/19 at 5:21 pm Service Date, if different from initiated Date: [] Patient: Lisa Ross 78 y/o F admitted on 06/17/19 for blood pressure problem. Chief Complaint: [] Date of admission: 06/17/19 23:10 Discharge date: 06/19/19 Primary care physician: Saige Yap Consults: 06/17/19 Consult to Physician [CONS] Stat Comment: Consulting Provider: Alexis Dimas Reason For Exam: Physician to Consult Medical - DS: Meds - Discharge Medications Prescriptions: Albuterol Sulfate 0.63 mg IH Q4-6HP PRN #30 vial.neb PRN Reason: Wheezing Transmission Status: Received by [id number] predniSONE [Prednisone] 10 mg PO [facility] #1 tab Prescription Printed Azithromycin [Zithromax] 500 mg PO DAILY #1 tab Transmission Status: Pending to [id number] Active and Home Medications: Home Medications Methocarbamol [Robaxin] 750 - 1,500 mg PO QIDP PRN #40 tablet 05/18/15 [Rx Confirmed 02/26/19 Last Taken Unknown] ALPRAZolam [Alprazolam] 1 tab PO PRN PRN 06/07/15 [History Confirmed 02/26/19 Last Taken 10/16/17 11:00] Albuterol Sulfate [Proair Hfa] 1 puff INH PRN PRN 06/07/15 [History Confirmed 02/26/19 Last Taken 10/18/17 11:00] HYDROcodone/ACETAMINOPHEN [Hydrocodon-Acetaminophn 10-325] 1 tab PO Q4HP PRN 06/07/15 [History Confirmed 06/18/19 Last Taken 10/18/17 13:00] Losartan Potassium 100 mg PO DAILY 06/07/15 [History Confirmed 06/18/19 Last Taken 10/18/17 11:00] Tiotropium [place] [Spiriva] 1 puff INH DAILY 06/07/15 [History Confirmed 02/26/19 Last Taken 10/18/17 11:00] amLODIPine BESYLATE [Amlodipine Besylate] 1 tab PO DAILY 06/07/15 [History Confirmed 02/26/19 Last Taken 10/18/17 09:00] Albuterol Sulfate 0.63 mg IH Q4-6HP PRN #20 vial.neb 10/03/15 [Rx Confirmed 02/26/19 Last Taken 10/18/17 11:00] Escitalopram Oxalate 20 mg PO PRN PRN 10/18/17 [History Confirmed 02/26/19 Last Taken 10/18/17 11:00] Ondansetron [Zofran ODT] 4 mg SL Q4-6HP PRN #10 tab 04/08/18 [Rx Confirmed 02/26/19 Last Taken Unknown] DULoxetine HCL [Drizalma Sprinkle] 60 mg PO DAILY 06/18/19 [History Confirmed 06/18/19 Last Taken Unknown] Rosuvastatin Calcium [Crestor] 5 mg PO DAILY 06/18/19 [History Confirmed 06/18/19 Last Taken Unknown] SUMAtriptan SUCCINATE [Imitrex] 50 mg PO Q8HP PRN 06/18/19 [History Confirmed 06/18/19 Last Taken Unknown] hydrOXYzine HCL 25 mg PO Q6HP PRN 06/18/19 [History Confirmed 06/18/19 Last Taken Unknown] lamoTRIgine [Lamotrigine ER] 50 mg PO DAILY 06/18/19 [History Confirmed 06/18/19 Last Taken Unknown] Medical - DS: Hosp Hospital Course: Ms. Ross is a 78 year old F With a history of asthma and COPD presents the ED with shortness of breath. Patient collapsed in the shower today and is able to bring on the wall to the other apartment and those individuals called EMS. Patient states she has had increased cough and shortness of breath for 4 days above chronic cough. She is felt very wheezy. She has a lot of sinus drainage. Has some chest pain aggravated by coughing. In the ED she was given steroids and nebulizers with some improvement however on room air she still desat to the 80s. And still very wheezy. Chest x-ray unremarkable. 06/18 He much better today. She feels her breathing is significantly improved. Per nurses she did desat a little bit while ambulating but recovered. She is currently on room air. She says she coughed up a bunch of junk this morning. 06/19 Still has cough but it is breaking up and she has been doing well on room air. A: *Acute chronic exacerbation of asthma/COPD (not on home O2): 2/2 RSV *Acute hypoxic respiratory failure: 2/2 above -now on room air *JORDEN on CKD IIIb: improving *Anemia, chronic: *HTN: ?norvasc/losartan *Anxiety/depression: ?prn home benzo *Osteoarthritis: home prn [place] *h/o Migraines difficulty clarifying home meds Discharge diagnosis: OPD exacerbation acute hypoxic respiratory failure acute kidney injury Secondary discharge diagnosis: Hypertension anxiety osteoarthritis migraine - Time Spent with Patient Total time spent providing and/or coordinating discharge services: Greater than 30 minutes Medical - DS: Exam - Constitutional Vitals: Vital Signs Temp Pulse Pulse Resp BP BP BP 06/18/19 15:44 98 F 20 142/68 06/18/19 14:00 06/18/19 11:15 86 20 06/18/19 11:00 98.3 F 24 H 141/74 06/18/19 07:16 06/18/19 07:00 98.3 F 24 H 146/70 06/18/19 06:35 89 15 06/18/19 03:45 98.6 F 83 20 137/57 06/17/19 23:46 28 H 06/17/19 23:23 75 22 119/60 06/17/19 23:21 98.2 F 89 20 126/52 06/17/19 23:01 78 19 125/62 06/17/19 22:46 83 23 H 107/68 06/17/19 22:32 78 16 100/49 06/17/19 22:24 77 13 06/17/19 22:16 75 14 119/60 06/17/19 22:03 75 15 06/17/19 22:01 77 16 127/66 06/17/19 21:31 89 20 126/68 06/17/19 21:16 77 15 114/58 06/17/19 21:01 80 19 120/56 06/17/19 20:46 82 15 124/59 06/17/19 20:33 85 21 121/77 06/17/19 20:16 87 21 109/69 06/17/19 20:01 82 30 H 134/61 06/17/19 19:48 82 19 130/88 06/17/19 19:31 80 24 H 103/92 06/17/19 19:16 81 29 H 118/72 06/17/19 19:08 80 22 121/74 06/17/19 19:02 81 37 H 86/55 06/17/19 19:00 82 06/17/19 18:46 78 27 H 129/67 06/17/19 18:36 81 19 127/64 06/17/19 18:31 78 22 127/64 06/17/19 18:16 78 19 120/64 06/17/19 18:01 78 20 115/63 06/17/19 17:46 81 30 H 127/66 06/17/19 17:40 79 22 138/85 06/17/19 17:29 96.3 F L 73 30 H 125/65 Pulse Ox 06/18/19 15:44 95 06/18/19 14:00 94 06/18/19 11:15 06/18/19 11:00 98 06/18/19 07:16 93 06/18/19 07:00 91 06/18/19 06:35 06/18/19 03:45 91 06/17/19 23:46 94 06/17/19 23:23 94 06/17/19 23:21 95 06/17/19 23:01 94 06/17/19 22:46 96 06/17/19 22:32 95 06/17/19 22:24 95 06/17/19 22:16 95 06/17/19 22:03 95 06/17/19 22:01 95 06/17/19 21:31 95 06/17/19 21:16 94 06/17/19 21:01 91 06/17/19 20:46 91 06/17/19 20:33 94 06/17/19 20:16 93 06/17/19 20:01 95 06/17/19 19:48 95 06/17/19 19:31 100 06/17/19 19:16 97 06/17/19 19:08 97 06/17/19 19:02 98 06/17/19 19:00 06/17/19 18:46 98 06/17/19 18:36 100 06/17/19 18:31 100 06/17/19 18:16 99 06/17/19 18:01 100 06/17/19 17:46 100 06/17/19 17:40 97 06/17/19 17:29 97 Intake and Output 01/09/0206/18/19 06/18/19 05:59 13:59 21:59 Intake Total 1240 300 Output Total 200 300 Balance 1040 0 Intake: IV 1000 Sodium Chloride 0.9% 1,000 ml @ 1000 125 mls/hr IV .Q8H [facility] Rx#: [id number] Oral 240 300 Output: Urine Catheter Amount 300 Void Amount 200 Other: Meal Lunch Percent of Meal Consumed yogurt 100% Feeding Ability Independent Independent Urine Appearance Clear Clear Urine Color Bright Yellow Bright Yellow # Voids 1 Weight 74.162 kg 74.162 kg Patient Weight 06/19/19 05:59 Weight 74.162 kg Medical - DS: Data Labs on day of discharge: Labs from last 24 hours 06/18/19 06/18/19 06/17/19 06:03 06:03 18:00 WBC 7.9 RBC 3.51 L Hgb 9.4 L Hct 30.1 L MCV 85.8 MCH 26.8 MCHC 31.2 RDW 14.1 Plt Count 338 MPV 9.6 Gran % 89.7 H Lymph % (Auto) 9.2 L [place] % (Auto) 0.8 L Eos % (Auto) 0 Baso % (Auto) 0.3 Gran # 7.13 Lymph # (Auto) 0.73 L [place] # (Auto) 0.06 L Eos # (Auto) 0 Baso # (Auto) 0.02 Sodium 133 Potassium 5.0 Chloride 99 Carbon Dioxide 17 L Anion Gap 17.0 H BUN 29 H Creatinine 1.5 H GFR Calculation 33 Glucose 210 H Uric Acid 8.1 H Calcium 8.8 Phosphorus 3.1 Magnesium 1.8 Total Bilirubin < 0.2 Direct Bilirubin < 0.2 GGT 19 AST 24 ALT 16 Alkaline Phosphatase 70 Lactate Dehydrogenase 212 Total Creatine Kinase CK-MB (CK-2) Myoglobin Troponin T < 0.01 NT-Pro-B Natriuret Pep Total Protein 6.8 Albumin 3.7 Globulin 3.1 Albumin/Globulin Ratio 1.2 Triglycerides 89 06/17/19 06/17/19 06/17/19 18:00 17:59 17:59 WBC 11.0 RBC 3.94 Hgb 10.5 L Hct 34.0 L MCV 86.3 MCH 26.6 MCHC 30.9 L RDW 13.8 Plt Count 388 MPV 9.5 Gran % 72.1 Lymph % (Auto) 16.7 [place] % (Auto) 8.0 Eos % (Auto) 2.2 Baso % (Auto) 1.0 Gran # 7.96 Lymph # (Auto) 1.84 [place] # (Auto) 0.88 Eos # (Auto) 0.24 Baso # (Auto) 0.11 Sodium 138 Potassium 3.8 Chloride 101 Carbon Dioxide 19 L Anion Gap 18.0 H BUN 27 H Creatinine 1.7 H GFR Calculation 29 Glucose 163 H Uric Acid Calcium 9.2 Phosphorus Magnesium Total Bilirubin 0.2 Direct Bilirubin GGT AST 25 ALT 19 Alkaline Phosphatase 78 Lactate Dehydrogenase Total Creatine Kinase 138 CK-MB (CK-2) 3.5 H Myoglobin 287 H Troponin T NT-Pro-B Natriuret Pep 761.1 H Total Protein 7.1 Albumin 4.0 Globulin 3.1 Albumin/Globulin Ratio 1.3 Triglycerides Medical - DS: A/P - Patient/Caregiver Discharge Instructions Activity: increase activity as tolerated Diet: Regular Diet Prescriptions: Albuterol Sulfate 0.63 mg IH Q4-6HP PRN #30 vial.neb PRN Reason: Wheezing Transmission Status: Received by [id number] predniSONE [Prednisone] 10 mg PO [facility] #1 tab Prescription Printed - Follow up Plan Follow up with: Saige Yap ARNP [Primary Care Provider] - Disposition: Home, Self-Care Prognosis: Fair Rehab Potential: Fair Overall status at discharge: patient is progressing back to baseline
[2019-06-18] MEDS: AZITHROMYCIN 500 MG in DEXTROSE 5% IN WATER 250 ML IV SCH (19:29)
[2019-06-19] MEDS: IPRATROPIUM/ALBUTEROL 3 ML AMPUL.NEB NEB SCH ×3 (00:08→13:06)
[2019-06-19] MEDS: HYDROcodone/APAP 10/325MG TABLET PO PRN ×2 (05:40→09:31)
[2019-06-19] MEDS: 0.9 % SODIUM CHLORIDE 10 ML SYRINGE IV SCH (05:41)
[2019-06-19] MEDS: methylPREDNISolone SOD SUCC 125 MG/2 ML VIAL IV SCH (05:41)
[2019-06-19 07:14] LABS: Blood Urea Nitrogen 31 mg/dl (8-23); Carbon Dioxide 19 mmol/L (22-30); Chloride 105 mmol/L (96-108); Glomerular Filtration Rate 36; Glucose 164 mg/dL (70-105)
[2019-06-19] MEDS ORDERED: guaiFENesin 600 MG TAB.SR.12H PO ONE (08:18)
[2019-06-19] MEDS ORDERED: SIMVASTATIN 20 MG TABLET PO SCH (09:00)
[2019-06-19] MEDS ORDERED: DULoxetine 30 MG CAPSULE PO SCH (09:00)
[2019-06-19] MEDS ORDERED: LAMOTRIGINE 50 MG PO SCH (09:00)
[2019-06-19] MEDS: INSULIN LISPRO 1 UNIT/0.01 ML UNIT SQ SCH ×2 (09:30→12:42)
[2019-06-19] MEDS: DOCUSATE SODIUM 100 MG CAPSULE PO SCH (09:31)
[2019-06-19] MEDS: ENOXAPARIN 40 MG/0.4 ML SYRINGE SQ SCH (09:32)
[2019-06-19] MEDS: AZITHROMYCIN 500 MG in DEXTROSE 5% IN WATER 250 ML IV SCH (11:40)
== END 2019-06-19 13:30 | disposition home or self-care (01) ==
LOC: ED 17:29 → ICU 23:10
PROVIDERS: ADMIT Internal Medicine; ATTEND Internal Medicine